=== PATIENT | male | born 1970 | race Caucasian/White ===

== ENCOUNTER → 2021-02-27 | Day surgery (SDC) | payer BC ==
[~2021-02-27] MED LIST: Lactated Ringers 1,000 ML IV ONE
[2021-02-27 10:54] VITALS: BP 134/73; PULSE 65
--- NOTE | 2021-03-02 07:13 | OR ---
DATE OF OPERATION: 02/27/2021 PREOPERATIVE DIAGNOSIS: MICROCYTIC ANEMIA. POSTOPERATIVE DIAGNOSIS: MICROCYTIC ANEMIA. SURGEON: Jefry Burciaga MD PROCEDURE: 1. DIAGNOSTIC ESOPHAGOGASTRODUODENOSCOPY WITH BIOPSY X2, GRACIA. 2. FULL-LENGTH DIAGNOSTIC COLONOSCOPY. ANESTHESIA: MAC. COMPLICATIONS: None. SPECIMEN: 1. Anastomotic ulcer biopsy x2. 2. Gastric GRACIA. FINDINGS: 1. Full-length diagnostic EGD. 2. Status post Heidi-en-Y gastric bypass. 3. Large anastomotic ulcer at Heidi-en-Y bypass site. 4. Normal full-length colonoscopy with marginal prep. RECOMMENDATIONS: Routine followup colonoscopy in 10 years. The patient will be started on aggressive proton pump therapy and treatment for his H. pylori as deemed necessary. We will do a followup EGD in 6 weeks to ensure resolution. INDICATIONS: The patient was in for routine physical. We are planning a screening colonoscopy and his lab work came back showing microcytic anemia. He has a known history of gastric bypass. We elected to proceed with upper and lower diagnostic endoscopies. DESCRIPTION OF PROCEDURE: The patient was prepped and draped, placed in the left lateral decubitus position with head of the bed elevated. A lubricated Olympus gastroscope was inserted over a bit, advanced to cricopharyngeus area, and intubated in the esophagus. The esophageal lining was benign in its entire course. The Z-line was crisp and sharp at 40 cm. The scope was advanced into the stomach. The patient has a prior Heidi-en-Y gastric bypass. At the Heidi-en- Y site, the patient has a large exudative ulcer. There was much friability there. Two biopsies were taken along with a GRACIA from the gastric lining. No other lesions were found. Air was suctioned from the stomach and the scope removed without complication. A lubricated Olympus colonoscope was inserted and easily advanced to the cecum. Direct visualization of the ileocecal valve and appendiceal orifice was accomplished. The bowel prep was marginal. There was a lot of stool present, but most could be suctioned, smaller lesions certainly may have been missed. Upon withdrawal, throughout the entire length of the colon, I could find no polyps, masses, ulceration, or bleeding sites. No vascular abnormalities or signs of colitis. There were no significant diverticula. The rectal vault appeared benign. Retroflexion of the scope in the rectum showed no anal lesions. Air was suctioned and the scope removed without complication. BAUDILIO/MOHSEN /[id number]
== END ==
LOC: CC.SDS 08:54
PROVIDERS: ATTEND Family Medicine
DX: K52.9 Noninfective gastroenteritis and colitis, unspecified (principal); D50.9 Iron deficiency anemia, unspecified; K28.9 Gastrojejunal ulcer, unspecified as acute or chronic, without hemorrhage or perforation; I10 Essential (primary) hypertension; G20 Parkinson's disease; M10.9 Gout, unspecified; R06.00 Dyspnea, unspecified; E66.01 Morbid (severe) obesity due to excess calories; Z98.84 Bariatric surgery status; Z88.0 Allergy status to penicillin; Z79.899 Other long term (current) drug therapy; Z98.890 Other specified postprocedural states; Z68.41 Body mass index [BMI] 40.0-44.9, adult
CPT/HCPCS: 00813; 87081; J7120

== ENCOUNTER → 2021-04-10 | Day surgery (SDC) | payer BC ==
[~2021-04-10] MED LIST changes: -Lactated Ringers 1,000 ML IV ONE; +Lactated Ringers 1,000 ML IV SCH; +Lidocaine 0.5% 50 ML SDV ONE; +Propofol 200 MG/20 ML SDV ONE; +fentaNYL 100 MCG/2 ML SDV ONE
[2021-04-10 11:53] VITALS: PULSE 65
[2021-04-10 12:16] VITALS: BP 115/69
--- NOTE | 2021-04-13 09:47 | OR ---
DATE OF OPERATION: 04/10/2021 PREOPERATIVE DIAGNOSIS: FOLLOWUP ANASTOMOTIC ULCER. POSTOPERATIVE DIAGNOSIS: FOLLOWUP ANASTOMOTIC ULCER. SURGEON: Jefry Burciaga MD PROCEDURE: DIAGNOSTIC ESOPHAGOGASTRODUODENOSCOPY WITH BIOPSY X2. ANESTHESIA: MAC. COMPLICATIONS: None. SPECIMEN: Biopsy x2 of anastomotic ulcer. FINDINGS: 1. Full-length diagnostic EGD. 2. Healing anastomotic ulcer. 3. Status post Heidi-en-Y gastric bypass. INDICATIONS: The patient had a prior EGD with a large anastomotic ulcer. We were doing a followup to ensure healing. DESCRIPTION OF PROCEDURE: The patient was prepped and draped, placed in the left lateral decubitus position. A lubricated Olympus gastroscope was inserted over a bit, advanced to cricopharyngeus area, and easily intubated into the esophagus. The esophageal lining was benign in its entire course. The Z-line was crisp and sharp without any spontaneous reflux, distal esophagitis, stricturing, or significant ulceration. The scope was advanced into the stomach. Heidi-en-Y bypass is noticed at the anastomosis. The ulcer is 85% improved. Still a little inflammation more distally which was hard to see before and we did do 2 biopsies of the area, but all-in-all marked improvement. No repeat CLOtest was done. Air was then suctioned and the scope removed without complication. BAUDILIO/MOHSEN /[id number]
== END ==
LOC: CC.SDS 09:41
PROVIDERS: ATTEND Family Medicine
DX: K28.9 Gastrojejunal ulcer, unspecified as acute or chronic, without hemorrhage or perforation (principal); I10 Essential (primary) hypertension; M10.9 Gout, unspecified; Z88.0 Allergy status to penicillin; G20 Parkinson's disease; E66.9 Obesity, unspecified; Z98.84 Bariatric surgery status; Z79.899 Other long term (current) drug therapy; Z98.890 Other specified postprocedural states; Z68.41 Body mass index [BMI] 40.0-44.9, adult
CPT/HCPCS: 00731; J2704; J3010; J7120

== ENCOUNTER 2022-08-02 16:53 | Emergency (ER) | payer BC ==
[2022-08-02 16:55] VITALS: BP 104/77; PULSE 89
== END 2022-08-02 17:55 | disposition home or self-care (01) ==
LOC: CC.ED 16:53
DX: L76.34 Postprocedural seroma of skin and subcutaneous tissue following other procedure (principal); Z88.0 Allergy status to penicillin; Z91.030 Bee allergy status; Z79.899 Other long term (current) drug therapy; Z79.01 Long term (current) use of anticoagulants
CPT/HCPCS: 87070; 99283

== ENCOUNTER 2025-06-18 16:54 | Observation (INO) | payer BC ==
[2025-06-18] MEDS ORDERED: Ondansetron 4 MG/2 ML SDV IV PRN (17:09)
[2025-06-18] MEDS: Sodium Chloride 0.9% 10 ML Syringe FLUSH PRN (19:23)
[2025-06-19 07:19] LABS: BASOPHILS ABSOLUTE AUTO 0.05 10^3/uL (0.00-0.50); BASOPHILS PERCENT AUTO 0.5 % (0-1); EOSINOPHILS ABSOLUTE AUTO 0.37 10^3/uL (0.00-1.50); EOSINOPHILS PERCENT AUTO 4.0 % (0-6); IMMATURE GRAN ABSOLUTE AUTO 0.04 10^3/uL (0.00-0.49); IMMATURE GRAN PERCENT AUTO 0.4 % (0.0-4.9); LYMPHOCYTES ABSOLUTE AUTO 2.10 10^3/uL (0.60-5.00); LYMPHOCYTES PERCENT AUTO 22.9 % (24-44); MONOCYTES ABSOLUTE AUTO 1.38 10^3/uL (0.00-1.50); MONOCYTES PERCENT AUTO 15.1 % (0-10); NEUTROPHILS ABSOLUTE AUTO 5.22 x10^3/uL (1.80-8.00); NEUTROPHILS PERCENT AUTO 57.1 % (41-71); PLATELET COUNT,PLT 458 10^3/uL (150-400); RED BLOOD CELL COUNT 3.80 x10^6/uL (4.50-6.00); WHITE BLOOD CELL COUNT,WBC 9.2 10^3/uL (4.0-11.0)
[2025-06-19 07:27] LABS: APPEARANCE,URINE CLEAR (CLEAR); GLUCOSE,URINE NEGATIVE (NEGATIVE); OCCULT BLOOD,URINE NEGATIVE (NEGATIVE)
[2025-06-19 07:47] LABS: SQUAMOUS EPITHELIAL CELLS,UR FEW /HPF (NOT SEEN)
[2025-06-19 07:51] LABS: ASPARTATE AMNIOTRANSFERASE,AST 14.0 U/L (15-37); BILIRUBIN TOTAL 0.7 mg/dL (0.0-1.0); BLOOD UREA NITROGEN,BUN 13.0 mg/dL (7-18); CARBON DIOXIDE,CO2 28.0 mmol/L (21-32); CHLORIDE,CL 103.0 mEq/L (98-106); GLUCOSE RANDOM 88.0 mg/dL (75-99); POTASSIUM,K 3.8 mEq/L (3.5-5.0); PROTEIN TOTAL,TP 7.3 g/dL (6.4-8.2); SODIUM,NA 141.0 mEq/L (136-145)
[2025-06-19 08:13] LABS: ALANINE AMINOTRANSFERASE,ALT 9.0 U/L (12-78)
[2025-06-19] MEDS ORDERED: fentaNYL 50 MCG/ML SDV ONE (08:30)
[2025-06-19] MEDS ORDERED: Propofol 200 MG/20 ML SDV ONE (08:30)
[2025-06-19] MEDS ORDERED: Midazolam 1 MG/ML 2 ML SDV ONE (08:30)
[2025-06-19 08:34] LABS: CREATININE 0.9 mg/dL (0.7-1.3); EST CRCL DRUG DOSING (CG) 98.77 mL/min
[2025-06-19 08:35] LABS: ESTIMATED GFR 101.0 mL/min (>=60)
[2025-06-19] MEDS: CARBIDOPA PO SCH (09:21)
[2025-06-19] MEDS: LEVODOPA PO SCH (09:21)
[2025-06-19 15:30] VITALS: BP 138/77; PULSE 86
== END 2025-06-19 11:43 | disposition home or self-care (01) ==
LOC: UNDOADMOB 16:54 → CC.MS 16:54
PROVIDERS: ADMIT Physician Assistant Medical; ATTEND Physician Assistant Medical
DX: K92.2 Gastrointestinal hemorrhage, unspecified (principal); K92.1 Melena; R55 Syncope and collapse; D64.9 Anemia, unspecified; I10 Essential (primary) hypertension; Z88.0 Allergy status to penicillin; Z98.1 Arthrodesis status; Z79.01 Long term (current) use of anticoagulants; Z91.030 Bee allergy status; Z79.899 Other long term (current) drug therapy
CPT/HCPCS: 36415; 80053; 81001; 85025; 86850; 86900; 86901; J2003; J2250; J2470; J2704; J3010; J7030

== ENCOUNTER 2025-08-02 06:38 | Day surgery (SDC) | payer BC ==
[2025-08-02] MEDS: Lactated Ringers 1,000 ML IV SCH (07:20)
[2025-08-02] MEDS ORDERED: fentaNYL 50 MCG/ML SDV ONE (08:06)
[2025-08-02] MEDS ORDERED: Propofol 200 MG/20 ML SDV ONE (08:06)
[2025-08-02 09:22] VITALS: BP 122/69; PULSE 53
== END 2025-08-02 09:15 | disposition home or self-care (01) ==
LOC: CC.SDS 06:38
PROVIDERS: ATTEND Family Medicine
DX: K31.89 Other diseases of stomach and duodenum (principal); K28.9 Gastrojejunal ulcer, unspecified as acute or chronic, without hemorrhage or perforation; Z98.0 Intestinal bypass and anastomosis status; D50.9 Iron deficiency anemia, unspecified; I10 Essential (primary) hypertension; Z88.0 Allergy status to penicillin; Z79.899 Other long term (current) drug therapy
CPT/HCPCS: 00731; 36415; 85018; J2003; J2704; J3010; J7120